=== PATIENT | female | born 2000 | race Caucasian/White ===

== ENCOUNTER 2025-04-29 19:07 | Emergency (ER) | payer OTHER ==
[~2025-04-29] VITALS: Ht 180.3 cm; Wt 67.5 kg
[2025-04-30] MEDS: KETOROLAC 60 MG/2 ML VIAL IM ONE (00:24)
[2025-04-30 01:01] VITALS: BP 101/59; TEMP 97.6; O2SAT 100
== END 2025-04-30 01:10 | disposition home or self-care (01) ==
LOC: M ED 19:07
DX: S06.0X0A Concussion without loss of consciousness, initial encounter (principal); W22.8XXA Striking against or struck by other objects, initial encounter; Z88.0 Allergy status to penicillin; Z88.1 Allergy status to other antibiotic agents; Z88.8 Allergy status to other drugs, medicaments and biological substances; Y92.89 Other specified places as the place of occurrence of the external cause; Y93.89 Activity, other specified; Y99.1 Military activity
CPT/HCPCS: 70450; 96372; 99283; J1885